=== PATIENT | male | born 1945 | race Hispanic/Latino ===

== ENCOUNTER 2019-09-29 08:04 | Day surgery (SDC) | payer OTHER ==
[~2019-09-29 08:04] MED LIST: SODIUM CHLORIDE 0.9% 1000 ML 1,000 ML IV SCH
--- NOTE | 2019-09-29 09:30 | Anesthesia Consultation ---
Anesthesia Consult and Med Hx Date of service: 09/29/19 - Airway Anesthetic Teeth Evaluation: Good ROM Head & Neck: Adequate Mental/Hyoid Distance: Adequate Mallampati Class: Class II Intubation Access Assessment: Probably Good - Cardiac Exam Cardiac Exam: RRR - Pre-Operative Health Status ASA Pre-Surgery Classification: ASA3 - Pulmonary Hx Smoking: Yes (Quit 10/2018) COPD: Yes (4 months ago had an ED visit; received nebs; released) - Cardiovascular System Hx Hypertension: Yes Hx Coronary Artery Disease: Yes (Cardiac stents x2 +10 years) Hx Heart Attack/AMI: Yes - Central Nervous System Hx Psychiatric Problems: Yes (PTSD) - Endocrine Hx Liver Disease: Yes (Hyperlipidemia)
--- NOTE | 2019-09-29 09:31 | Anesthesia Day of Surgery ---
Anesthesia Day of Surgery - Day of Surgery Patient Examined: Yes Patient H&P Reviewed: Yes Patient is NPO: Yes Beta Blockers: Yes Cardiac Clearance: Yes
[2019-09-29] MEDS ORDERED: propofoL 200 MG/20 ML VIAL IV ONE (10:13)
--- NOTE | 2019-09-29 10:46 | Procedure Note ---
Date of procedure: 09/29/19 Pre-op diagnosis: Colon Polyp Screening Post-op diagnosis: other (No colon Polyps noted/Mild to moderate Diverticular disease/Moderte Internal Hemorrhoids) Procedure: Colonoscopy Anesthesia: MAC Surgeon: ROYAL FOWLER Estimated blood loss: none Pathology: none Condition: stable Disposition: same day (Encourage fiber intake; otherwise resume home medication. follow up in 1 to 2 weeks ([phone]).)
--- NOTE | 2019-09-29 10:55 | Operative Report ---
PROCEDURE: Colonoscopy. INDICATIONS: A 74-year-old white male who has a prior history of colon polyp. Colonoscopy was done as part of colon polyp screening. Last colonoscopy was done several years ago. DESCRIPTION OF PROCEDURE: Procedure was done after getting informed consent with MAC anesthesia. Initial rectal exam was unremarkable. Instrument was passed through the rectum on to the cecum, which was identified with ileocecal valve and appendiceal orifice. The terminal ileum was briefly intubated, showed normal mucosa. Ascending colon showed normal mucosa. There were a few minor diverticula noted in the ascending colon. The transverse colon showed normal mucosa and again there was some mild to moderate diverticular disease noted in the left colon. The rectum showed moderate internal hemorrhoid on the retroverted view. There were no biopsies done and no bleeding associated with the procedure. No colon polyps noted. ASSESSMENT: Colon polyp screening, no colon polyps noted. Mild to moderate diverticular disease, moderate internal hemorrhoid. PLAN: To encourage the patient to take fiber supplements, treat the patient with hemorrhoidal medication over the counter and to have the patient resume home medication and follow up in the office in 1-2 weeks' time. Procedure was done in the GI lab with assistance of the GI lab team, which included MANUEL Alvarado, simon Atkinson and with assistance of anesthesia. JOB# [id number] MADDY/CHRIS
[2019-09-29 11:09] VITALS: BP 121/66
--- NOTE | 2019-09-29 14:35 | Post Anesthesia Evaluation ---
- Post Anesthesia Evaluation Patient Participated: Yes Airway Patent: Yes Stable Respiratory Function: Yes Nausea/Vomiting: No Temp > 96.8F: Yes Pain Manageable: Yes Adequeate Hydration: Yes Anesthesia Complications: No
== END 2019-09-29 11:26 | disposition home or self-care (01) ==
LOC: GIO 08:04
DX: Z12.11 Encounter for screening for malignant neoplasm of colon (principal); K64.8 Other hemorrhoids; K57.30 Diverticulosis of large intestine without perforation or abscess without bleeding; I25.10 Atherosclerotic heart disease of native coronary artery without angina pectoris; I10 Essential (primary) hypertension; J44.9 Chronic obstructive pulmonary disease, unspecified; E78.5 Hyperlipidemia, unspecified; Z95.5 Presence of coronary angioplasty implant and graft; Z86.010 Personal history of colon polyps; Z87.891 Personal history of nicotine dependence; Z79.899 Other long term (current) drug therapy; Z98.890 Other specified postprocedural states
CPT/HCPCS: 45378; J2704; J7030